=== PATIENT | female | born 1995 | race Caucasian/White ===

== ENCOUNTER 2017-07-26 22:33 | Emergency (ER) | payer OTHER ==
[2017-07-27] MEDS: ONDANSETRON 4 MG ORAL DISINTEGRATING TAB (Q0162 PER 1MG) PO (00:43)
== END 2017-07-27 01:16 | disposition home or self-care (01) ==
LOC: M ED 22:33
DX: E86.0 Dehydration (principal); R10.9 Unspecified abdominal pain; R11.2 Nausea with vomiting, unspecified
CPT/HCPCS: Q0162